=== PATIENT | male | born 1945 | race Caucasian/White ===

== ENCOUNTER 2016-09-01 15:48 | Emergency (ER) | payer OTHER ==
[~2016-09-01] VITALS: Ht 172.7 cm; Wt 81.6 kg
--- NOTE | 2016-09-01 16:38 | ED GI/GU/ABDOMINAL COMPLAINT ---
History of Present Illness General Chief Complaint: Male Genitourinary Problems Stated Complaint: BLOOD IN URINE Source: patient, family Exam Limitations: no limitations Vital Signs & Intake/Output Vital Signs & Intake/Output Vital Signs Date Time Temp Pulse Resp B/P Pulse O2 O2 Flow FiO2 Ox Delivery Rate 09/01 1739 98.6 86 18 158/84 98 Room Air 09/01 1558 97.3 79 18 167/104 98 Room Air Allergies Coded Allergies: NO KNOWN ALLERGIES (09/01/16) Reconcile Medications Ciprofloxacin HCl (Cipro) 500 MG TABLET 1 TAB PO BID infection Triage Note: PT TO ER C/C 1 EPISODE OF BLOOD IN URINE AT 0800; HAS NOT VOIDED SINCE. DENIES HX OF SAME OR PAIN. Triage Nurses Notes Reviewed? yes HPI: Patient is a 70-year-old male presents complaining of hematuria. Patient had 2 episodes this morning of painless hematuria. Pain is 0 out of 10. Patient does not take any antiplatelet or anticoagulant medication. Patient denies dysuria, urgency, frequency, abdominal pain, back pain, fevers, chills, difficulty initiating urine stream. (LISHA GARCIA) Past History Travel History Traveled to [place] past 21 day No Medical History Any Pertinent Medical History? none Surgical History Surgical History: non-contributory Psychosocial History What is your primary language Hungarian Tobacco Use: Quit >30 days ago Family History Hx Contributory? No (LISHA GARCIA) Review of Systems Review of Systems Constitutional: Denies: chills, fever, malaise, weakness. EENTM: Reports: no symptoms. Respiratory: Denies: cough, short of breath. Cardiovascular: Denies: chest pain. GI: Denies: abdominal pain, diarrhea, nausea, vomiting. Genitourinary: Reports: hematuria. Denies: dysuria, frequency, pain. Musculoskeletal: Denies: back pain, neck pain. Skin: Reports: no symptoms. Neurological/Psychological: Reports: no symptoms. Hematologic/Endocrine: Reports: bleeding (hematuria). Immunologic/Allergic: Denies: splenectomy. (LISHA GARCIA) Physical Exam Physical Exam General Appearance: well developed/nourished, alert, awake Head: atraumatic, normal appearance Eyes: Bilateral: normal appearance, PERRL, EOMI. Ears, Nose, Throat, Mouth: hearing grossly normal, moist mucous membrane Neck: normal inspection, supple, full range of motion Respiratory: normal breath sounds, chest non-tender, no respiratory distress, lungs clear Cardiovascular: regular rate/rhythm Gastrointestinal: normal bowel sounds, soft, non-tender Back: normal inspection, normal range of motion, no vertebral tenderness, no CVA tenderness Extremities: normal range of motion Neurologic/Psych: no motor/sensory deficits, awake, alert, oriented x 3, normal gait, normal mood/affect Skin: intact, normal color, warm/dry Core Measures ACS in differential dx? No Severe Sepsis Present: No Septic Shock Present: No (LISHA GARCIA) Progress Differential Diagnosis: urinary tract infection, pyelonephritis, bladder growth/ malignancy, kidney stone, AAA Plan of Care: Orders Procedure Date/time Status CULTURE,URINE 09/01 1636 Active URINALYSIS 09/01 1636 Complete Laboratory Tests 09/01/16 1637: Urinalysis LIGHT H, Urine Color BROWN H, Urine Clarity TURBD H, Urine pH 5.0, Ur Specific [place] >= 1.030, Urine Protein 100 H, Urine Ketones TRACE H, Urine Nitrite POS H, Urine Bilirubin NEG@ICTO, Urine Urobilinogen 1.0, Ur Leukocyte Esterase TRACE H, Ur Microscopic SEDIMENT EXAMINED, Urine RBC >75 H, Urine WBC 3-5 H, Urine Hemoglobin LARGE H, Urine Glucose NEG Microbiology 09/01 1636 URINE ROUT: Urine Culture - RECD No abdominal pain or back pain reported. No tenderness on exam. Imaging deferred. Discussed results of urinalysis with patient and his . Discussed with patient importance of follow up with urology and likely need for cystoscopy. Discussed with Dr. Smith. (LISHA GARCIA) Initial ED EKG: none (LISHA GARCIA) Departure Departure Time of Disposition: 1730 Disposition: HOME OR SELF CARE Condition: Stable Clinical Impression Primary Impression: Hematuria Referrals: DANIELLE EDWARDS,MARISOL BURNS MD,NADINE Escamilla (PCP/Family) NIKHIL CORONA MD Additional Instructions: Follow-up with Dr. Serna or with Dr. Corona(urologists) for further evaluation. Call in the morning for appointment to be seen within 1-2 weeks. Return to the ER if abdominal pain, fevers, nausea, vomiting, difficulty urinating or worsening of symptoms. Departure Forms: Customer Survey General Discharge Information Prescriptions: Current Visit Scripts Ciprofloxacin HCl (Cipro) 1 TAB PO BID #14 TAB (MICHELLE MOSQUEDA,LISHA) PA/[employer]ET AIRCRAFT SERVICER Co-Sign Statement Statement: ED Attending supervision documentation- x I saw and evaluated the patient. I have also reviewed all the pertinent lab results and diagnostic results. I agree with the findings and the plan of care as documented in the PA's/JET AIRCRAFT SERVICER's documentation. [] I have reviewed the ED Record and agree with the PA's/JET AIRCRAFT SERVICER's documentation. [] Additions or exceptions (if any) to the PAs/JET AIRCRAFT SERVICER's note and plan are summarized below: [] (CADY EDWARDS,MATTIE)
[2016-09-01] MEDS ORDERED: CIPRO500 M1 PO (17:32)
[2016-09-01 17:39] VITALS: BP 158/84
== END 2016-09-01 17:39 ==
LOC: ERH 15:48
DX: R31.9 Hematuria, unspecified (principal)
CPT/HCPCS: 81001; 87086

== ENCOUNTER → 2016-10-01 | Day surgery (SDC) | payer OTHER ==
[~2016-10-01] MED LIST: CIPRO500 M1 PO
--- NOTE | 2016-10-01 17:25 | Operative Report ---
Operative/Inv Procedure Report Surgery Date: 10/01/16 Name of Procedure: TURBT:large >3.5cm Mitomycin 40mg bladder instillation in RR Pre-Operative Diagnosis: recurrent bladder cancer Post-Operative Diagnosis: same Estimated Blood Loss: less than 50ml Surgeon/Barrel Dedenting Machine Operator: NIKHIL CLAUDIO MD Anesthesia: laryngeal mask airway Drains: 18fr silverio Specimens: bladder tumor Complications: none Operative/Procedure Note Note: The patient was taken to the operating room, and placed on the OR table in supine position. Timeout was performed, with the patient awake, to confirm correct patient, procedure, anesthesia, antibiotics, and other pertinent lakshmi- operative information. After adequate anesthesia and antibiotics, the patient was then placed in lithotomy stirrups, draped and prepped in usual surgical fashion. A 26 [place] resectoscope sheath with a 30 angle lens, and 24 [place]ian loop, was inserted into the urethra, and advanced into the bladder without difficulty. Upon entering the bladder, the bladder was noted to be mildly trabeculated. Both ureteral orifices were in their orthotopic position, with clear reflux bilaterally. A solitary 1 Cm papillary lesion was visualized on the dome of the bladder, consistent with tumor. No other tumors were seen on thorough and systematic surveillance. Under direct visualization, this 2.5 cm papillary lesion was resected from superficial to deeper layers, including partial detrusor muscle base resection. The entire tumor was removed, along with a 0.5 cm margin of normal mucosa. The tumor fragments were evacuated, and sent to pathology. Cauterization of the base of the tumor resection was performed, in order to achieve good hemostasis. The bladder was copiously irrigated once again with 3 L of sorbitol. The resectoscope was removed leaving the bladder full. The bladder was drained by placing a 16 [place] Silverio catheter , without difficulty, and with clear fluid. 10 mL of sterile water was placed in the balloon, and the Silverio catheter was plugged after complete decompression of the bladder. The patient tolerated procedure well was then taken to recovery room in satisfactory condition. In the recovery room, Mitomycin 40mg in 40cc sterile saline, was instilled into the bladder using the indwelling 16fr catheter. The Silverio was clamped, for one hour, with the pt turned from [id number] every 15minutes, during mitomycin instillation. The patient tolerated this part of the procedures well, the catheter was removed for the pt. to void. The patient tolerated both procedures well and discharged withpain meds, and antibiotics. The patient is scheduled for follow-up in the office in 2 weeks time. Discharge Disposition: PACU Additional Comments: f/u one week.-home with jean claude CC: NIKHIL CLAUDIO MD
== END ==
LOC: STS 03:13
DX: C67.1 Malignant neoplasm of dome of bladder (principal); N32.89 Other specified disorders of bladder; Z85.51 Personal history of malignant neoplasm of bladder; Z87.891 Personal history of nicotine dependence
CPT/HCPCS: 88307; J2250; J9280